=== PATIENT | female | born 1980 | race Caucasian/White ===

== ENCOUNTER 2017-01-18 11:58 | Day surgery (SDC) | payer OTHER ==
[2017-01-16 10:55] VITALS: BMI 29.8
[2017-01-18] MEDS ORDERED: Succinylcholine Chloride 20 mg/ml Syr (5 ml) IV ONE (13:34)
[2017-01-18] MEDS ORDERED: Propofol 10 mg/ml Inj (20 ML) ONE (13:34)
[2017-01-18] MEDS ORDERED: Rocuronium 10 mg/ml (5 ml) ONE (13:34)
[2017-01-18] MEDS ORDERED: Lidocaine Hydrochloride 5 ML INJ ONE (13:34)
[2017-01-18] MEDS ORDERED: Midazolam 2 MG/2 ML VIAL ONE (13:34)
[2017-01-18] MEDS ORDERED: Lactated Ringer's 1,000 ML IV ONE ×2 (13:50→15:11)
[2017-01-18] MEDS ORDERED: ceFAZolin IV 1 gm in Dextrose 1 GM/50 ML BAG IVPB ONE (13:51)
[2017-01-18] MEDS ORDERED: ePHEDrine 50 mg/ml Inj ONE (14:22)
[2017-01-18] MEDS ORDERED: Neostigmine Methylsulfate 3mg/3ml Syringe IV ONE (14:51)
[2017-01-18] MEDS ORDERED: Oxycodone/Acetaminophen 5/325 mg Tab PO PRN (15:03)
[2017-01-18] MEDS ORDERED: Lactated Ringer's 1,000 ML IV SCH (15:30)
[2017-01-18] MEDS: HYDROmorphone 0.5 mg/0.5 ml ISec IVP PRN ×3 (15:30→16:30)
[2017-01-18 17:30] VITALS: O2SAT 100
[2017-01-18 18:45] VITALS: BP 107/63; PULSE 88; RESP 18; TEMP 98.4
--- NOTE | 2017-01-20 07:17 | OP ---
PROCEDURE DATE: 01/18/2017 PREOPERATIVE DIAGNOSIS: Acute chronic cholecystitis. POSTOPERATIVE DIAGNOSES: Acute chronic cholecystitis with umbilical hernia. PROCEDURES PERFORMED: 1. Laparoscopic cholecystectomy (33291). 2. Repair of simple liver laceration (22280). 3. Repair of incarcerated umbilical hernia (52358). SURGEON: Talha Suarez MD ANESTHESIA: General. BLOOD LOSS: 80 mL. POSTOP CONDITION: Stable. INDICATION FOR SURGERY: This is a 36-year-old female with acute chronic cholecystitis who presents for elective laparoscopic cholecystectomy. GROSS FINDINGS: Gallbladder had evidence of chronic inflammation, it contained several small stones, it was opened slightly during the procedure. In summary, stones had to be retrieved using a stone forceps. During irrigation, there was a small liver laceration noted on dome of the liver which was bleeding fairly vigorous, this needed to be repaired laparoscopically prior to closure. PROCEDURE: The patient was taken to the operating room, placed in the supine position. General anesthesia was administered and the abdomen was prepped and draped. A periumbilical cutdown was performed, umbilical hernia incarcerated was encountered, removed and the abdomen was insufflated with CO2. Under direct vision, the remaining ports were placed. The gallbladder was then retracted, the cystic duct was carefully dissected freed the cystic duct, common duct. Cystic duct gallbladder junctions were clearly delineated, the cystic duct was clipped and divided. During the transection of the cystic duct, it was noted to be bleeding posterior to it from a branch of the cystic artery. Cystic artery was then quickly clipped in order to control bleeding and once this has been done, it was more acutely dissected and all the other branches were clipped and divided. The gallbladder was removed from the bed using a cautery. Bleeding was controlled using the cautery. Because there were several small stones spilled, using the stone forceps most of them were removed. However, the larger open irrigation was introduced in order to "vacuum" the remaining stones while this was being done over the liver, there was some bleeding noted, it was noted there was a small liver laceration which was bleeding fairly vigorously, this was controlled laparoscopically and also using the cautery. It was noted not to be bleeding and at the closure, it was reinspected, also found not to be bleeding. The abdomen was irrigated with saline until clear. The ports were removed. The umbilical hernia defect was closed with heavy Vicryl. The skin was closed with subcuticular Vicryl and Steri-Strips. The patient tolerated the procedure well and returned to the recovery room in stable condition. Talha Suarez MD
== END 2017-01-18 18:45 | disposition home or self-care (01) ==
LOC: C.SDS 11:58
PROVIDERS: ATTEND Surgery
DX: K81.9 Cholecystitis, unspecified (principal); K81.2 Acute cholecystitis with chronic cholecystitis; K42.9 Umbilical hernia without obstruction or gangrene
CPT/HCPCS: 47562; 49587; 88304; C1713; J0690; J1170; J2250; J2704; J2710; J3010; J7040; J7120

== ENCOUNTER 2017-01-25 10:46 | Emergency (ER) | payer OTHER ==
[2017-01-25 10:46] VITALS: BMI 29.8
[2017-01-25 10:55] VITALS: TEMP 98.3
[2017-01-25 11:52] LABS: BASO % 0.4 % (0.0-2.0); EOS # 0.2 K/uL (0.0-0.7); EOS % 2.4 % (0.0-4.0); HEMATOCRIT 36.8 % (34.0-47.0); LYMPH # 1.6 K/uL (1.0-4.3); LYMPH % 16.9 % (20.0-40.0); MEAN CELL VOLUME 83.3 fL (81.0-99.0); MEAN CORPUSCULAR HEMOGLOBIN 28.4 pg (27.0-31.0); MEAN CORPUSCULAR HGB CONC 34.1 g/dL (33.0-37.0); MEAN PLATELET VOLUME 7.3 fL (7.2-11.7); MONO # 0.4 K/uL (0.0-0.8); MONO % 4.1 % (0.0-10.0); NRBC % 0.1 % (0.0-2.0); RED CELL DISTRIBUTION WIDTH 13.9 % (11.5-14.5); WHITE BLOOD COUNT 9.6 K/uL (4.8-10.8)
[2017-01-25 12:00] LABS: ALB/GLOB RATIO 1.2 (1.0-2.1); ALKALINE PHOSPHATASE 94 U/L (38-126); ALT/SGPT 59 U/L (9-52); AST/SGOT 28 U/L (14-36); BILIRUBIN,TOTAL 0.7 mg/dL (0.2-1.3); BLOOD UREA NITROGEN 9 mg/dL (7-17); CALCIUM 9.2 mg/dl (8.6-10.4); CARBON DIOXIDE 27 mmol/L (22-30); CHLORIDE 98 mmol/L (98-107); GFR AFRICAN-AMERICAN > 60; GLUCOSE,RANDOM 117 mg/dL (65-105); POTASSIUM 3.6 mmol/L (3.6-5.2); SODIUM 137 mmol/L (132-148); TOTAL PROTEIN 7.9 g/dL (6.3-8.3)
[2017-01-25] MEDS ORDERED: Iohexol 350mg/ml 100 ML ONE (12:08)
[2017-01-25 12:15] LABS: URINE BILIRUBIN NEGATIVE (NEGATIVE); URINE BLOOD 3+ (NEGATIVE); URINE GLUCOSE (UA) NORMAL (Normal); URINE KETONE NEGATIVE (NEGATIVE); URINE LEUKOCYTE ESTERASE 1+ Leu/uL (Negative); URINE PROTEIN 2+ mg/dL (NEGATIVE); URINE UROBILINOGEN NORMAL mg/dL (0.2-1.0)
[2017-01-25 12:21] LABS: RBC URINE 8071 /hpf (0-3)
[2017-01-25 12:22] LABS: URINE BACTERIA RARE (<OCC); WBC URINE 4 /hpf (0-5)
[2017-01-25 12:23] LABS: URINE COLOR Amber (YELLOW)
--- NOTE | 2017-01-25 13:47 | CT ---
PROCEDURE: CT Abdomen and Pelvis with contrast HISTORY: s/p chavo - increased pain COMPARISON: None. TECHNIQUE: Contrast dose: 100 mL Omnipaque 350 Radiation dose: Total exam DLP = 569.36 mGy-cm. This CT exam was performed using one or more of the following dose reduction techniques: Automated exposure control, adjustment of the mA and/or kV according to patient size, and/or use of iterative reconstruction technique. FINDINGS: LOWER THORAX: Bilateral lower lobe linear atelectasis. LIVER: Normal size, contour and attenuation. No mass. No biliary dilatation. There is abnormal contour along the right lateral aspect of the liver with what is likely a small subcapsular fluid collection measuring 0.8 x 1.7 x 2.3 cm. . GALLBLADDER AND BILE DUCTS: Status post cholecystectomy. Surgical clips identified. Small fluid collection within the gallbladder fossa. Stranding of the mesenteric fat immediately adjacent to the gallbladder fossa, within normal limits status post cholecystectomy. PANCREAS: Unremarkable. No gross lesion or ductal dilatation. SPLEEN: Unremarkable. ADRENALS: Unremarkable. No mass. KIDNEYS AND URETERS: Unremarkable. No hydronephrosis. No solid mass. VASCULATURE: Unremarkable. No aortic aneurysm. BOWEL: Unremarkable. No obstruction. No gross mural thickening. APPENDIX: Normal appendix. PERITONEUM: Unremarkable. No free fluid. No free air. Unremarkable post laparoscopic changes at umbilicus. LYMPH NODES: Unremarkable. No enlarged lymph nodes. BLADDER: Nondistended REPRODUCTIVE: Unremarkable uterus. BONES: No acute fracture. OTHER FINDINGS: None. IMPRESSION: Small crescentic collection along the right lateral border of the liver, 2.3 cm in greatest dimension. Likely small subcapsular collection, possibly hematoma. Normal postoperative changes in and about the gallbladder fossa status post laparoscopic cholecystectomy. No evidence of bile leak. No pneumoperitoneum. No other significant abnormality.
--- NOTE | 2017-01-25 14:40 | C.PDOC ---
History Of Present Illness 36 y/o female presents to ED for evaluation of abdominal pain that started shortly after her cholecystectomy on 01/18/17. Notes having normal bowel movement today. Denies n/v/d, or fever. Notes she has a regular diet. Time Seen by Provider: 01/25/17 10:56 Chief Complaint (Nursing): Abdominal Pain History Per: Patient History/Exam Limitations: no limitations Onset/Duration Of Symptoms: Days Current Symptoms Are (Timing): Still Present Radiation Of Pain To:: None Quality Of Discomfort: "Pain" Associated Symptoms: denies: Nausea, Vomiting, Diarrhea Alleviating Factors: None Last Bowel Movement: Today Recent travel outside of the [place]: No Additional History Per: Patient Abnormal Vaginal Bleeding: No Past Medical History Reviewed: Historical Data, Nursing Documentation, Vital Signs Vital Signs: Last Vital Signs Temp 98.3 F 01/25/17 16:01 Pulse 81 01/25/17 16:01 Resp 18 01/25/17 16:01 BP 107/65 01/25/17 16:01 Pulse Ox 100 01/25/17 18:04 - Medical History PMH: Gall Bladder Disease Denies: Chronic Kidney Disease Surgical History: Cholecystectomy Family History: States: Unknown Family Hx - Social History Hx Alcohol Use: No Hx Substance Use: No - Immunization History Hx Tetanus Toxoid Vaccination: No Hx Influenza Vaccination: Yes Hx Pneumococcal Vaccination: No Review Of Systems Except As Marked, All Systems Reviewed And Found Negative. Constitutional: Negative for: Fever, Chills Gastrointestinal: Positive for: Abdominal Pain. Negative for: Nausea, Vomiting , Diarrhea Genitourinary: Negative for: Dysuria, Frequency, Hematuria Musculoskeletal: Negative for: Back Pain Physical Exam - Physical Exam Appears: Non-toxic, No Acute Distress Skin: Normal Color, Warm, Dry Head: Atraumatic, Normacephalic Eye(s): bilateral: Normal Inspection, EOMI Nose: Normal Oral Mucosa: Moist Neck: Normal ROM, Supple Chest: Symmetrical Cardiovascular: Rhythm Regular Respiratory: Normal Breath Sounds, No Rales, No Rhonchi, No Wheezing Gastrointestinal/Abdominal: Soft, Tenderness (right side upper quadrant, and suprapubic pain), No Guarding, No Rebound, Other (dry steri strips over the incision site) Back: No CVA Tenderness Extremity: Normal ROM Neurological/Psych: Oriented x3, Normal Speech ED Course And Treatment - Laboratory Results Result Diagrams: 01/25/17 11:38 01/25/17 11:38 O2 Sat by Pulse Oximetry: 100 Pulse Ox Interpretation: Normal - CT Scan/US Abdomen/Pelvis Other Rad Studies (CT/US): Read By Radiologist, Radiology Report Reviewed CT/US Interpretation: PROCEDURE: CT Abdomen and Pelvis with contrast. HISTORY : s/p chavo - increased pain. COMPARISON: None. TECHNIQUE: Contrast dose: 100 mL Omnipaque 350. Radiation dose: Total exam DLP = 569.36 mGy-cm. This CT exam was performed using one or more of the following dose reduction techniques: Automated exposure control, adjustment of the mA and/or kV according to patient size, and/or use of iterative reconstruction technique. FINDINGS: LOWER THORAX: Bilateral lower lobe linear atelectasis. LIVER: Normal size, contour and attenuation. No mass. No biliary dilatation. There is abnormal contour along the right lateral aspect of the liver with what is likely a small subcapsular fluid collection measuring 0.8 x 1.7 x 2.3 cm. . GALLBLADDER AND BILE DUCTS: Status post cholecystectomy. Surgical clips identified. Small fluid collection within the gallbladder fossa. Stranding of the mesenteric fat immediately adjacent to the gallbladder fossa, within normal limits status post cholecystectomy. PANCREAS: Unremarkable. No gross lesion or ductal dilatation. SPLEEN: Unremarkable. ADRENALS: Unremarkable. No mass. KIDNEYS AND URETERS: Unremarkable. No hydronephrosis. No solid mass. VASCULATURE: Unremarkable. No aortic aneurysm. BOWEL: Unremarkable. No obstruction. No gross mural thickening. APPENDIX: Normal appendix. PERITONEUM : Unremarkable. No free fluid. No free air. Unremarkable post laparoscopic changes at umbilicus. LYMPH NODES: Unremarkable. No enlarged lymph nodes. BLADDER: Nondistended. REPRODUCTIVE: Unremarkable uterus. BONES: No acute fracture. OTHER FINDINGS: None. IMPRESSION: Small crescentic collection along the right lateral border of the liver, 2.3 cm in greatest dimension. Likely small subcapsular collection, possibly hematoma. Normal postoperative changes in and about the gallbladder fossa status post laparoscopic cholecystectomy. No evidence of bile leak. No pneumoperitoneum. No other significant abnormality. Progress Note: Blood work, UA, and Abd & Pelvis CT ordered and reviewed. Patient was given Toradol. On re-eval, patient is resting comfortably, abdomen remains soft, and patient is tolerating PO. Case discussed with Dr Suarez, including CT and labs, and instructs pt to come office after discharge. Case discussed and results evaluated by Dr Ga, robles aguilaron plan and discharge. Instructed to return to ER if symtpoms persist or worsen. Disposition - Disposition Referrals: Talha Suarez MD [Staff Provider] - Disposition: HOME/ ROUTINE Disposition Time: 15:49 Condition: STABLE Additional Instructions: Go to Dr Suarez across the street right now. Return to ER if symptoms persist or worsen. Instructions: Acute Abdominal Pain (ED) Forms: [employer] (Telugu) - Clinical Impression Clinical Impression: Abdominal pain, Dysmenorrhea - PA / SKEINER / Resident Statement MD/DO has reviewed & agrees with the documentation as recorded. - Scribe Statement The provider has reviewed the documentation as recorded by the Scribe Lety Dobbs All medical record entries made by the Pardeepibbg were at my direction and personally dictated by me. I have reviewed the chart and agree that the record accurately reflects my personal performance of the history, physical exam, medical decision making, and the department course for this patient. I have also personally directed, reviewed, and agree with the discharge instructions and disposition.
[2017-01-25 16:01] VITALS: BP 107/65; PULSE 81; RESP 18
[2017-01-25 18:05] VITALS: O2SAT 100
== END 2017-01-25 16:17 | disposition home or self-care (01) ==
LOC: C.ER 10:46
DX: R10.11 Right upper quadrant pain (principal); N94.6 Dysmenorrhea, unspecified
CPT/HCPCS: 74177; 80053; 81001; 83690; 84703; 85025; 96374; 99284; J1885; Q9967

== ENCOUNTER 2017-10-13 08:46 | Emergency (ER) | payer OTHER ==
[2017-10-13 08:47] VITALS: BMI 29.8
[2017-10-13] MEDS ORDERED: Sodium Chloride 0.9% 1,000 ML IV ONE (09:22)
--- NOTE | 2017-10-13 09:31 | C.PDOC ---
History Of Present Illness 37 year old female presents to ED for evaluation of epigastric abdominal pain that developed 5:30 this morning. She notes pain is worse when standing and when laying down. Pain is not worse or better after eating. Denies having similar symptoms in the past. Denies taking any medication for symptoms. Otherwise, denies nausea, vomiting, diarrhea, constipation, back pain, dysuria, hematuria, fever, chills, cough, or chest pain. Time Seen by Provider: 10/13/17 09:18 Chief Complaint (Nursing): GI Problem History Per: Patient History/Exam Limitations: no limitations Onset/Duration Of Symptoms: Hrs Current Symptoms Are (Timing): Still Present Location Of Pain/Discomfort: Epigastric Radiation Of Pain To:: None Quality Of Discomfort: "Pain" Associated Symptoms: denies: Loss Of Appetite, Back Pain, Chest Pain, Constipation, Urinary Symptoms Exacerbating Factors: Upright Position Alleviating Factors: None Recent travel outside of the [place]: No Additional History Per: Patient Abnormal Vaginal Bleeding: No Past Medical History Reviewed: Historical Data, Nursing Documentation, Vital Signs Vital Signs: Last Vital Signs Temp 98.5 F 10/13/17 11:11 Pulse 68 10/13/17 11:11 Resp 18 10/13/17 11:11 BP 102/64 10/13/17 11:11 Pulse Ox 100 10/13/17 11:11 - Medical History PMH: Gall Bladder Disease Denies: Chronic Kidney Disease Surgical History: Cholecystectomy Family History: States: Unknown Family Hx - Social History Hx Alcohol Use: No Hx Substance Use: No - Immunization History Hx Tetanus Toxoid Vaccination: No Hx Influenza Vaccination: Yes Hx Pneumococcal Vaccination: No Review Of Systems Except As Marked, All Systems Reviewed And Found Negative. Constitutional: Negative for: Fever, Chills Cardiovascular: Negative for: Chest Pain Respiratory: Negative for: Cough, Shortness of Breath Gastrointestinal: Positive for: Abdominal Pain. Negative for: Nausea, Vomiting , Diarrhea, Constipation Genitourinary: Negative for: Dysuria, Frequency, Hematuria Musculoskeletal: Negative for: Back Pain Physical Exam - Physical Exam Appears: Non-toxic, No Acute Distress Skin: Normal Color, Warm, Dry Head: Atraumatic, Normacephalic Eye(s): bilateral: Normal Inspection Oral Mucosa: Moist Neck: Normal ROM, Supple Cardiovascular: Rhythm Regular, No Murmur Respiratory: Normal Breath Sounds, No Rales, No Rhonchi, No Wheezing Gastrointestinal/Abdominal: Bowel Sounds, Soft, Tenderness (epigastric), No Guarding, No Rebound Back: No CVA Tenderness Extremity: Normal ROM, No Deformity Neurological/Psych: Oriented x3, Normal Speech ED Course And Treatment - Laboratory Results Result Diagrams: 10/13/17 09:41 10/13/17 09:41 O2 Sat by Pulse Oximetry: 99 (RA) Pulse Ox Interpretation: Normal Medical Decision Making Medical Decision Making: Impression: 37 year old female with epigstric abdominal pain since this morning. Plan: * Blood work * Urinalysis * Pepcid, IV fluids * abd xray Labs reviewed with no acute findings. Xray shows fecal retention, no signs of mechanical obstruction. Discussed results with patient, and copy of report was provided. On re-examination, patient is resting comfortably in no acute distress. Patient reports improvement of abdominal pain. Abdomen is flat not rigid and no guarding to suggest any surgical pathology. Based on clinical history and findings, no further ER management as symptoms likely related to gastritis and constipation. I recommend to patient change diet to avoid any caffeine or acidic products. Patient feels comfortable going home and will be discharged. Patient given follow up instructions. Instructed to return to ER if symptoms worsen or new symptoms arise. Disposition Counseled Patient/Family Regarding: Diagnosis, Need For Followup - Disposition Referrals: Medardo Hall MD [Medical Doctor] - Disposition: HOME/ ROUTINE Disposition Time: 10:56 Condition: GOOD Additional Instructions: Avoid caffeine or any acidic foods. Do not take Advil or Aspirin for at least few weeks until pain resolved Take pepcid daily Follow up in the clinic Prescriptions: Docusate [Colace] 100 mg PO TID PRN #30 cap PRN Reason: Constipation Famotidine [Pepcid] 20 mg PO DAILY #20 tab Omeprazole 20 mg PO DAILY #20 capsule.dr Instructions: Gastritis (DC), Ulcer and Gastritis Diet Forms: [facility] ([place]) - POA Present On Arrival: None - Clinical Impression Clinical Impression: Gastritis, Constipation - PA / DOCTOR OF MEDICINE / Resident Statement MD/DO has reviewed & agrees with the documentation as recorded. - Scribe Statement The provider has reviewed the documentation as recorded by the Scribe Lety Dobbs All medical record entries made by the Scribe were at my direction and personally dictated by me. I have reviewed the chart and agree that the record accurately reflects my personal performance of the history, physical exam, medical decision making, and the department course for this patient. I have also personally directed, reviewed, and agree with the discharge instructions and disposition.
[2017-10-13] MEDS ORDERED: Sodium Chloride 0.9% 1,000 ML ONE (09:41)
[2017-10-13 10:04] LABS: BASO % 0.5 % (0.0-2.0); EOS # 0.3 K/uL (0.0-0.7); EOS % 3.4 % (0.0-4.0); HEMOGLOBIN 12.4 g/dL (11.0-16.0); LYMPH # 2.2 K/uL (1.0-4.3); LYMPH % 25.1 % (20.0-40.0); MEAN CELL VOLUME 84.1 fL (81.0-99.0); MEAN CORPUSCULAR HEMOGLOBIN 29.1 pg (27.0-31.0); MEAN CORPUSCULAR HGB CONC 34.6 g/dL (33.0-37.0); MEAN PLATELET VOLUME 7.7 fL (7.2-11.7); MONO # 0.4 K/uL (0.0-0.8); MONO % 5.1 % (0.0-10.0); NEUT # 5.7 K/uL (1.8-7.0); NEUT % 65.9 % (50.0-75.0); RBC 4.24 Mil/uL (3.80-5.20); RED CELL DISTRIBUTION WIDTH 13.4 % (11.5-14.5); WHITE BLOOD COUNT 8.7 K/uL (4.8-10.8)
[2017-10-13 10:12] LABS: HCG,QUALITATIVE URINE NEGATIVE (NEGATIVE); SQUAMOUS EPITHIAL 4 /hpf (0-5); URINE BILIRUBIN NEGATIVE (NEGATIVE); URINE BLOOD NEGATIVE (NEGATIVE); URINE CLARITY Clear (Clear); URINE COLOR Yellow (YELLOW); URINE GLUCOSE (UA) NORMAL (Normal); URINE LEUKOCYTE ESTERASE 1+ Leu/uL (Negative); URINE PROTEIN NEGATIVE (NEGATIVE); URINE UROBILINOGEN NORMAL mg/dL (0.2-1.0)
[2017-10-13 10:50] LABS: ALB/GLOB RATIO 1.4 (1.0-2.1); ALBUMIN 4.4 g/dL (3.5-5.0); ALT/SGPT 27 U/L (9-52); AMYLASE 91 U/L (30-110); AST/SGOT 21 U/L (14-36); BLOOD UREA NITROGEN 11 mg/dL (7-17); CALCIUM 9.4 mg/dl (8.6-10.4); GFR AFRICAN-AMERICAN > 60; GFR NON-AFRICAN AMERICAN > 60; LIPASE 76 U/L (23-300)
[2017-10-13 11:12] VITALS: BP 102/64; PULSE 68; RESP 18; TEMP 98.5
[2017-10-13 13:17] VITALS: O2SAT 99
--- NOTE | 2017-10-13 13:41 | RAD ---
Abdomen four views History: Abdominal pain. Comparison: None available. Findings: Lung delcid are clear. Bibasilar breast and nipple shadows. Heart size within normal limits. Surgical clips in the right upper abdomen. Moderate fecal retention in the colon. No evidence of gross bowel obstruction. Impression: Moderate fecal retention in the colon.
--- NOTE | 2017-10-16 08:06 | CARD ---
APPROVED REPORT Date of service: 10/13/2017 EKG Measurement Heart [id number] <Conclusion> Normal sinus rhythm with sinus arrhythmia Possible Left atrial enlargement Nonspecific T wave abnormality Abnormal ECG
== END 2017-10-13 11:18 | disposition home or self-care (01) ==
LOC: C.ER 08:46
DX: K29.70 Gastritis, unspecified, without bleeding (principal); K59.00 Constipation, unspecified
CPT/HCPCS: 74022; 80053; 81001; 82150; 83690; 84703; 85025; 93005; 96361; 96374; 99284; J7030